=== PATIENT | female | born 1945 | race Caucasian/White ===

== ENCOUNTER 2018-02-22 07:30 | Outpatient (CLI) | payer OTHER ==
[~2018-02-22 07:30] MED LIST: ALTACE10 MG; GLIMEPIRIDE4 MG; GLUMETZA1000 MG; METOPROLOL SUC100 MG; PRAVASTATIN SOD40 MG
== END 2018-02-22 07:38 | disposition home or self-care (01) ==
LOC: LAB 07:30
DX: I10 Essential (primary) hypertension (principal); E11.9 Type 2 diabetes mellitus without complications; E03.8 Other specified hypothyroidism; E78.2 Mixed hyperlipidemia

== ENCOUNTER 2018-06-05 06:51 | Outpatient (CLI) | payer OTHER | END 2018-06-05 06:56 | disposition home or self-care (01) | LOC: LAB 06:51 | DX: E03.8 Other specified hypothyroidism (principal); I10 Essential (primary) hypertension; E11.9 Type 2 diabetes mellitus without complications ==

== ENCOUNTER → 2018-09-13 08:40 | Outpatient (CLI) | payer OTHER | END | disposition home or self-care (01) | LOC: LAB 08:40 | DX: I10 Essential (primary) hypertension (principal); E11.9 Type 2 diabetes mellitus without complications; E03.8 Other specified hypothyroidism; E78.2 Mixed hyperlipidemia ==

== ENCOUNTER → 2019-04-16 07:02 | Outpatient (CLI) | payer OTHER | END | disposition home or self-care (01) | LOC: LAB 07:02 | DX: E03.8 Other specified hypothyroidism (principal); E11.9 Type 2 diabetes mellitus without complications; E78.2 Mixed hyperlipidemia; Z12.11 Encounter for screening for malignant neoplasm of colon; I10 Essential (primary) hypertension ==

== ENCOUNTER → 2019-04-17 07:49 | Outpatient (CLI) | payer OTHER | END | disposition home or self-care (01) | LOC: LAB 07:49 | DX: E03.8 Other specified hypothyroidism (principal); E11.9 Type 2 diabetes mellitus without complications; I10 Essential (primary) hypertension; E78.2 Mixed hyperlipidemia; Z12.11 Encounter for screening for malignant neoplasm of colon ==

== ENCOUNTER 2019-07-26 07:23 | Outpatient (CLI) | payer OTHER | END 2019-07-26 10:45 | disposition home or self-care (01) | LOC: LAB 07:23 | DX: E03.8 Other specified hypothyroidism (principal); E78.2 Mixed hyperlipidemia; I10 Essential (primary) hypertension; E11.9 Type 2 diabetes mellitus without complications ==

== ENCOUNTER 2019-12-09 07:46 | Outpatient (CLI) | payer OTHER | END 2019-12-09 14:59 | disposition home or self-care (01) | LOC: LAB 07:46 | DX: E11.9 Type 2 diabetes mellitus without complications (principal); I10 Essential (primary) hypertension; E03.8 Other specified hypothyroidism; E78.2 Mixed hyperlipidemia ==

== ENCOUNTER 2020-03-24 06:48 | Outpatient (CLI) | payer OTHER | END 2020-03-24 06:51 | disposition home or self-care (01) | LOC: LAB 06:48 | DX: E11.9 Type 2 diabetes mellitus without complications (principal); I10 Essential (primary) hypertension; E03.8 Other specified hypothyroidism; E78.2 Mixed hyperlipidemia; Z12.11 Encounter for screening for malignant neoplasm of colon ==

== ENCOUNTER 2021-01-20 07:45 | Outpatient (CLI) | payer OTHER | END 2021-01-20 07:52 | disposition home or self-care (01) | LOC: LAB 07:45 | PROVIDERS: ATTEND Internal Medicine Cardiovascular Disease | DX: E03.8 Other specified hypothyroidism (principal); I10 Essential (primary) hypertension; E11.9 Type 2 diabetes mellitus without complications; E78.2 Mixed hyperlipidemia; Z12.11 Encounter for screening for malignant neoplasm of colon; E55.9 Vitamin D deficiency, unspecified ==

== ENCOUNTER 2021-09-02 08:25 | Outpatient (CLI) | payer OTHER | END 2021-09-02 08:26 | disposition home or self-care (01) | LOC: LAB 08:25 | PROVIDERS: ATTEND Internal Medicine Cardiovascular Disease | DX: I10 Essential (primary) hypertension (principal); E11.9 Type 2 diabetes mellitus without complications; E03.8 Other specified hypothyroidism; E78.2 Mixed hyperlipidemia ==

== ENCOUNTER 2021-09-12 05:12 | Emergency (ER) | payer OTHER ==
[~2021-09-12] VITALS: Ht 157.5 cm; Wt 92.1 kg
[2021-09-12] MEDS ORDERED: SINGULAIR10 MG (05:29)
[2021-09-12] MEDS ORDERED: HUMULIN R100 UNIT/1 (05:29)
[2021-09-12] MEDS ORDERED: HUMULIN N100 UNIT/2 (05:30)
== END 2021-09-12 12:54 | disposition home or self-care (01) ==
LOC: ER 05:12
DX: N20.0 Calculus of kidney (principal); N13.39 Other hydronephrosis; D27.1 Benign neoplasm of left ovary; R10.32 Left lower quadrant pain; I10 Essential (primary) hypertension

== ENCOUNTER → 2022-05-03 | Emergency (ER) | payer OTHER ==
[~2022-05-03] VITALS: Ht 157.5 cm; Wt 94.3 kg
[~2022-05-03] MED LIST changes: +CIPRO500 MG PO; +HUMULIN N100 UNIT/2; +HUMULIN R100 UNIT/1; +PERCOCET 5-3251 EACH PO; +SINGULAIR10 MG; +TAMS0.4C PO
== END | disposition home or self-care (01) ==
LOC: ER
DX: N20.0 Calculus of kidney (principal); N20.1 Calculus of ureter; R10.31 Right lower quadrant pain; Z88.2 Allergy status to sulfonamides; Z88.6 Allergy status to analgesic agent

== ENCOUNTER 2023-02-20 07:53 | Outpatient (CLI) | payer OTHER ==
[~2023-02-20 07:53] MED LIST changes: +CARBOXYMETHYLC1 EAC1 OP; +CLARITIN-D 121 EACH PO; +NOVOLIN R100 UNIT/1 IM; +RESTASIS1 EACH OP; +ULTRAM50 MG PO
== END 2023-02-20 07:55 | disposition home or self-care (01) ==
LOC: LAB 07:53
PROVIDERS: ATTEND Internal Medicine Cardiovascular Disease
DX: E11.9 Type 2 diabetes mellitus without complications (principal); I10 Essential (primary) hypertension; E03.9 Hypothyroidism, unspecified; E78.2 Mixed hyperlipidemia; K92.0 Hematemesis; Z12.11 Encounter for screening for malignant neoplasm of colon

== ENCOUNTER 2023-06-26 18:00 | Emergency (ER) | payer OTHER ==
[~2023-06-26] VITALS: Ht 157.5 cm; Wt 94.3 kg
== END 2023-06-26 21:12 | disposition home or self-care (01) ==
LOC: ER 18:00
DX: N20.0 Calculus of kidney (principal); K57.30 Diverticulosis of large intestine without perforation or abscess without bleeding; E11.9 Type 2 diabetes mellitus without complications; Z79.4 Long term (current) use of insulin; Z79.84 Long term (current) use of oral hypoglycemic drugs; I10 Essential (primary) hypertension; Z88.6 Allergy status to analgesic agent; Z88.2 Allergy status to sulfonamides
CPT/HCPCS: 36415; 74176; 96365; 99284; J2405

== ENCOUNTER 2023-07-08 08:24 | Outpatient (CLI) | payer OTHER | END 2023-07-08 08:25 | disposition home or self-care (01) | LOC: LAB 08:24 | PROVIDERS: ATTEND Urology | DX: N39.0 Urinary tract infection, site not specified (principal); E11.9 Type 2 diabetes mellitus without complications ==

== ENCOUNTER 2023-07-11 07:30 | Outpatient (CLI) | payer OTHER | END 2023-07-11 07:38 | disposition home or self-care (01) | LOC: RAD 07:30 | PROVIDERS: ATTEND Urology | DX: N20.0 Calculus of kidney (principal) ==

== ENCOUNTER 2023-07-18 04:51 | Emergency (ER) | payer OTHER ==
[~2023-07-18] VITALS: Ht 160 cm; Wt 72.6 kg
== END 2023-07-18 08:43 | disposition home or self-care (01) ==
LOC: ER 04:51
DX: N23 Unspecified renal colic (principal); Z88.2 Allergy status to sulfonamides; Z88.6 Allergy status to analgesic agent
CPT/HCPCS: 96372; 99282; J2175; J2550

== ENCOUNTER 2023-07-20 11:04 | Emergency (ER) | payer OTHER ==
[~2023-07-20] VITALS: Ht 157.5 cm; Wt 94.3 kg
[2023-07-20] MEDS ORDERED: MONTELUKAST SODI4 M1 (11:24)
== END 2023-07-20 15:59 | disposition home or self-care (01) ==
LOC: ER 11:04
PROVIDERS: Emergency Medicine
DX: N23 Unspecified renal colic (principal); Z88.2 Allergy status to sulfonamides; Z88.6 Allergy status to analgesic agent; Z87.442 Personal history of urinary calculi; E11.9 Type 2 diabetes mellitus without complications; Z79.4 Long term (current) use of insulin; I10 Essential (primary) hypertension
CPT/HCPCS: 36415; 71045; 96365; 99284; J2175

== ENCOUNTER 2023-07-25 11:25 | Outpatient (CLI) | payer OTHER ==
[~2023-07-25] VITALS: Ht 157.5 cm; Wt 90.7 kg
[~2023-07-25 11:25] MED LIST changes: +MONTELUKAST SODI4 M1
[2023-07-25] MEDS ORDERED: RESTASIS1 EACH OP (12:46)
[2023-07-25] MEDS ORDERED: GLUMETZA1000 MG PO (12:46)
[2023-07-25] MEDS ORDERED: GLIMEPIRIDE4 MG (12:46)
== END 2023-07-25 11:29 | disposition home or self-care (01) ==
LOC: EKG 11:25
PROVIDERS: ATTEND Urology
DX: I11.9 Hypertensive heart disease without heart failure (principal)

== ENCOUNTER 2023-09-16 16:04 | Emergency (ER) | payer OTHER ==
[~2023-09-16] VITALS: Ht 157.5 cm; Wt 92.1 kg
[~2023-09-16 16:04] MED LIST changes: +GLUMETZA1000 MG PO
[2023-09-16 20:51] LABS: PH,URINE 5.5 (5.0-8.0); URINE APPEARANCE Clear; URINE BILIRRUBIN Negative (NEGATIVE); URINE BLOOD Large; URINE COLOR Red; URINE GLUCOSE Negative (NEGATIVE); URINE LEUKOCYTE Trace; URINE NITRATE Negative; URINE UROBILINOGEN 0.2 E.U./dl
[2023-09-16 20:55] LABS: URINE BACTERIA 125.9 uL (0.0-1933); URINE EPITHELIAL CELLS 4.6 uL (0.0-38.8); URINE WBC 54.4 uL (0.0-23.2)
[2023-09-16 21:00] LABS: HEMATOCRIT 39.1 % (36.0-45.00); HEMOGLOBIN 13.1 g/dL (12.0-15.00); MEAN CELL VOLUME 92.3 fL (80.00-100.00); MEAN CORPUSCULAR HEMOGLOBIN 30.9 pg (27.00-32.0); MEAN CORPUSCULAR HGB CONC 33.4 g/dl (32.0-36.0); PLATELET COUNT 296 K/uL (150-450); RED BLOOD COUNT 4.24 M/uL (4.00-6.00); RED CELL DISTRIBUTION WIDTH 14.2 % (11.5-14.5)
[2023-09-16 21:18] LABS: CALCIUM 9.5 mg/dL (8.5-10.1); CREATININE SERUM 0.86 mg/dL (0.55-1.02); GFR 64.15; POTASSIUM 3.79 mEq/L (3.5-5.1)
[2023-09-16 21:20] LABS: URINE PROTEIN 100 (NEGATIVE)
== END 2023-09-16 22:14 | disposition home or self-care (01) ==
LOC: ER 16:04
PROVIDERS: General Practice
DX: R31.9 Hematuria, unspecified (principal); Z88.2 Allergy status to sulfonamides; Z88.6 Allergy status to analgesic agent; E11.9 Type 2 diabetes mellitus without complications; Z79.4 Long term (current) use of insulin; I10 Essential (primary) hypertension; K57.30 Diverticulosis of large intestine without perforation or abscess without bleeding; N20.0 Calculus of kidney

== ENCOUNTER 2023-10-02 09:46 | Outpatient (CLI) | payer OTHER | END 2023-10-02 10:11 | disposition home or self-care (01) | LOC: SONOGRAMA 09:46 | PROVIDERS: ATTEND Urology | DX: N20.0 Calculus of kidney (principal); Z88.2 Allergy status to sulfonamides; Z88.6 Allergy status to analgesic agent ==

== ENCOUNTER → 2023-10-07 08:32 | Outpatient (CLI) | payer OTHER | END | disposition home or self-care (01) | LOC: LAB 08:32 | PROVIDERS: ATTEND Urology | DX: N20.0 Calculus of kidney (principal) ==

== ENCOUNTER 2023-10-30 07:43 | Outpatient (CLI) | payer OTHER ==
[2023-10-31 14:06] LABS: C ur 5.9 mg/dL (Not Estab.); Magnesio 24 38.5 mg/24 hr (12.0-293.0); Phos ur 31.5 mg/dL (Not Estab.)
== END 2023-10-30 13:29 | disposition home or self-care (01) ==
LOC: LAB 07:43
PROVIDERS: ATTEND Urology
DX: N20.0 Calculus of kidney (principal); Z88.2 Allergy status to sulfonamides; Z88.6 Allergy status to analgesic agent

== ENCOUNTER 2023-11-25 08:05 | Outpatient (CLI) | payer OTHER ==
[2023-11-25 09:35] LABS: HEMATOCRIT 41.1 % (36.0-45.00); MEAN CELL VOLUME 92.8 fL (80.00-100.00); MEAN CORPUSCULAR HEMOGLOBIN 31.6 pg (27.00-32.0); PLATELET COUNT 238 K/uL (150-450); RED BLOOD COUNT 4.43 M/uL (4.00-6.00); RED CELL DISTRIBUTION WIDTH 13.2 % (11.5-14.5)
[2023-11-25 09:36] LABS: PH,URINE 5.5 (5.0-8.0); URINE APPEARANCE Clear; URINE BILIRRUBIN Negative (NEGATIVE); URINE BLOOD Negative; URINE COLOR Yellow; URINE GLUCOSE Negative (NEGATIVE); URINE LEUKOCYTE Trace; URINE NITRATE Negative; URINE PROTEIN Negative (NEGATIVE); URINE UROBILINOGEN 0.2 E.U./dl
[2023-11-25 09:43] LABS: URINE BACTERIA 32.7 uL (0.0-1933); URINE RBC 4.7 uL (0.0-20.8); URINE WBC 42.6 uL (0.0-23.2)
[2023-11-25 09:59] LABS: CALCIUM 9.5 mg/dL (8.5-10.1); CREATININE SERUM 0.99 mg/dL (0.55-1.02); GFR 54.39; POTASSIUM 4.83 mEq/L (3.5-5.1)
[2023-11-25 10:00] LABS: INR 1.02; PARTIAL THROMBOPLASTIN TIME 27.4 SECONDS (22.0-34.0); PROTHROMBIN TIME 10.7 SECONDS (9.0-11.5)
== END 2023-11-25 08:07 | disposition home or self-care (01) ==
LOC: LAB 08:05
PROVIDERS: ATTEND Urology
DX: I11.9 Hypertensive heart disease without heart failure (principal); N20.2 Calculus of kidney with calculus of ureter; D65 Disseminated intravascular coagulation [defibrination syndrome]; E11.9 Type 2 diabetes mellitus without complications

== ENCOUNTER 2023-12-16 08:39 | Outpatient (CLI) | payer OTHER | END 2023-12-16 08:43 | disposition home or self-care (01) | LOC: RAD 08:39 | PROVIDERS: ATTEND Urology | DX: N20.0 Calculus of kidney (principal) ==

== ENCOUNTER 2024-01-13 08:38 | Outpatient (CLI) | payer OTHER ==
[2024-01-13 10:33] LABS: HEMATOCRIT 38.1 % (36.0-45.00); HEMOGLOBIN 13.3 g/dL (12.0-15.00); MEAN CELL VOLUME 93.5 fL (80.00-100.00); MEAN CORPUSCULAR HEMOGLOBIN 32.6 pg (27.00-32.0); MEAN CORPUSCULAR HGB CONC 34.9 g/dl (32.0-36.0); PLATELET COUNT 219 K/uL (150-450); RED BLOOD COUNT 4.08 M/uL (4.00-6.00); RED CELL DISTRIBUTION WIDTH 13.6 % (11.5-14.5)
[2024-01-13 10:37] LABS: URINE APPEARANCE Clear; URINE BILIRRUBIN Negative (NEGATIVE); URINE BLOOD Negative; URINE COLOR Yellow; URINE GLUCOSE Negative (NEGATIVE); URINE LEUKOCYTE Trace; URINE NITRATE Negative; URINE PROTEIN Negative (NEGATIVE); URINE UROBILINOGEN 0.2 E.U./dl
[2024-01-13 10:39] LABS: URINE BACTERIA 45.3 uL (0.0-1933); URINE EPITHELIAL CELLS 4.6 uL (0.0-38.8); URINE RBC 6.4 uL (0.0-20.8); URINE WBC 29.1 uL (0.0-23.2)
[2024-01-13 11:14] LABS: ALBUMIN 3.9 gm/dL (3.4-5.0); BILIRUBIN TOTAL 0.57 mg/dL (0.3-1.2); CALCIUM 9.1 mg/dL (8.5-10.1); CHOL HDL RATIO 3.1 (0-5.0); CREATININE SERUM 0.85 mg/dL (0.55-1.02); GFR 64.85; GLOBULINA 2.9 G/DL (2.4-3.5); POTASSIUM 4.29 mEq/L (3.5-5.1); T4 TOTAL 8.17 UG/DL (4.8-13.9); TOTAL PROTEIN 6.8 gm/dL (6.4-8.2); TSH 2.62 uIU/mL (0.358-3.74)
[2024-01-15 12:23] LABS: T3 TOTAL 1.19 ng/ml (0.846-2.02); VITAMIN D3 25 HYDROXY 38.95 ng/ml (30-120)
== END 2024-01-13 08:44 | disposition home or self-care (01) ==
LOC: LAB 08:38
PROVIDERS: ATTEND Urology
DX: I10 Essential (primary) hypertension (principal); E11.9 Type 2 diabetes mellitus without complications; E03.9 Hypothyroidism, unspecified; E78.2 Mixed hyperlipidemia; Z12.11 Encounter for screening for malignant neoplasm of colon; E55.9 Vitamin D deficiency, unspecified